=== PATIENT | female | born 1975 | race Caucasian/White ===

== ENCOUNTER → 2016-09-19 | Outpatient (CLI) | payer OTHER ==
[~2016-09-19] MED LIST: DEXT10TA23 PO; LEVO125T PO; LEVO125T5 PO; NITR50CA11 PO; OXYC1TAB7 PO; VALIUM10 MG PO
[2016-09-19 14:58] LABS: BASO % 0 % (0-3); EOS % 0 % (0-3); HEMATOCRIT 46.3 % (36.0-47.0); HEMOGLOBIN 15.3 g/dL (12.0-15.5); LYMPH # 1.4 x10^3/uL (1.0-4.8); LYMPH % 19 % (24-48); MEAN CORPUSCULAR HEMOGLOBIN 31 pg (25-35); MEAN CORPUSCULAR HGB CONC 33 g/dL (31-37); MEAN CORPUSCULAR VOLUME 95 fL (79-100); MONO % 4 % (0-9); NEUT % 76 % (31-73); PLATELET COUNT 352 x10^3/uL (140-400); RED CELL DISTRIBUTION WIDTH 13.2 % (11.5-14.5); WHITE BLOOD COUNT 7.3 x10^3/uL (4.0-11.0)
[2016-09-19 15:11] LABS: ALBUMIN/GLOBULIN RATIO 0.9 (1.0-1.7); CALCIUM 9.6 mg/dL (8.5-10.1); CREATININE 0.7 mg/dL (0.6-1.0); GFR 91.8; POTASSIUM 3.9 mmol/L (3.5-5.1); TOTAL BILIRUBIN 0.3 mg/dL (0.2-1.0); TOTAL PROTEIN 8.4 g/dL (6.4-8.2)
[2016-09-19 15:19] LABS: PROTHROMBIN TIME PATIENT 12.6 SEC (11.7-14.0)
--- NOTE | 2016-09-21 13:32 | PREOP HP ---
DATE OF SERVICE: 09/24/2016 PREOPERATIVE HISTORY AND PHYSICAL HISTORY OF PRESENT ILLNESS: The patient is a pleasant 40-year-old, who is having difficulty with back pain and pain which radiates into her right lower extremity. The majority of her pain radiates from her lower back on the right side into her right buttock and then down the right lateral thigh and lateral leg. Her problem started in 2003 when she fell on the stairs. She rates her pain currently as an 8/10. Standing and lifting, aggravate exacerbate her pain. Sleep did not help. She has had considerable amount conservative therapy including facet injections and epidural steroid injections as well as physical therapy. None of which have offered lasting relief. PAST MEDICAL HISTORY: Arthritis, cancer, psychiatric care and radiation. PAST SURGICAL HISTORY: Hysterectomy in 2012, thyroidectomy in 2014. FAMILY HISTORY: Cancer, hypertension. 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 . Exercises daily. Denies substance abuse. Denies tobacco use. ALLERGIES: TO SHELLFISH AND IV CONTRAST DYE. CURRENT MEDICATIONS: Meloxicam, Valium, Adderall, Synthroid and Macrobid. REVIEW OF SYSTEMS: A 12-point review of systems was obtained and is noncontributory except that mentioned above. PHYSICAL EXAMINATION: NEUROSURGERY EXAMINATION: GENERAL APPEARANCE: Alert, pleasant, no acute distress. HEAD: Normocephalic and atraumatic. SKIN: Warm and dry. MUSCULOSKELETAL: Lumbar paraspinal muscle bulk is normal, restricted range of motion of lumbar spine, moderate tenderness of lower lumbar spine with palpation, normal range of motion the lower extremities bilaterally. EXTREMITIES: No clubbing, cyanosis, or edema. NEUROLOGIC: Alert and oriented x 3, normal recent and remote memory, strength 5/5 in bilateral lower extremities, sensory was intact to light touch in the lower extremities bilaterally. Reflexes were trace and symmetric in bilateral lower extremities, positive straight leg raising on the right, negative straight leg raising on the left, normal gait. IMAGING: Reviewed. I reviewed a lumbar flexion and extension x-rays as well as lumbar MRI scan. On the flexion and extension films, there is a grade 1 anterolisthesis, which increases about 2 mm to full grade 1/small grade 2 with anterior angulation with flexion. On the MRI scan, the patient is supine, the spondylolisthesis is a smaller grade 1 at L4-L5, but is associated with____ canal, was severe lateral recess stenosis at this level. ASSESSMENT: 1. Spinal stenosis, lumbar region. 2. Spondylolisthesis, lumbar region. 3. Radiculopathy, lumbar region. PLAN: She has significant spondylolisthesis motion as well as lateral recess stenosis, which has moderately severe. Decompressing these regions will further destabilizer and expect to remove more than 50% of the facet bilaterally. She will require in addition to decompress an instrumented lumbar fusion with pedicle screws and posterolateral bone. I would also perform an anterior diskectomy and fusion at that level. I discussed with her ____ other the surgery in the emergency. I outlined the expected postoperative course. I spoke about the technique of the operation in detail. They both understand. They would like to go ahead. The patient would like to proceed. We will make the arrangements. LAYA LAMB MD DR: HAILEY/carolyn JOB#: [id number] / [id number]
== END | disposition home or self-care (01) ==
LOC: SURGPAT 13:10
PROVIDERS: ATTEND Neurological Surgery
DX: M48.06 Spinal stenosis, lumbar region (principal); M43.16 Spondylolisthesis, lumbar region; M54.16 Radiculopathy, lumbar region
CPT/HCPCS: 36415; 80053; 85027; 85610; 85730; 87641

== ENCOUNTER 2016-09-24 07:37 | Inpatient (IN) | payer OTHER ==
[2016-09-24] VITALS (9 sets, daily range): BP systolic 97–113; BP diastolic 62–75
[~2016-09-24] VITALS: Ht 165.1 cm; Wt 66.2 kg
--- NOTE | 2016-09-24 06:55 | PREOP HP ---
DATE OF SERVICE: 09/24/2016 PREOPERATIVE HISTORY AND PHYSICAL HISTORY OF PRESENT ILLNESS: The patient is a pleasant 40-year-old, who is having difficulty with back pain and pain which radiates into her right lower extremity. The majority of her pain radiates from her lower back on the right side into her right buttock and then down the right lateral thigh and lateral leg. Her problem started in 2003 when she fell on the stairs. She rates her pain currently as an 8/10. Standing and lifting, aggravate exacerbate her pain. Sleep did not help. She has had considerable amount conservative therapy including facet injections and epidural steroid injections as well as physical therapy. None of which have offered lasting relief. PAST MEDICAL HISTORY: Arthritis, cancer, psychiatric care and radiation. PAST SURGICAL HISTORY: Hysterectomy in 2012, thyroidectomy in 2014. FAMILY HISTORY: Cancer, hypertension. SOCIAL HISTORY: Employed as a [employer]. . Exercises daily. Denies substance abuse. Denies tobacco use. ALLERGIES: TO SHELLFISH AND IV CONTRAST DYE. CURRENT MEDICATIONS: Meloxicam, Valium, Adderall, Synthroid and Macrobid. REVIEW OF SYSTEMS: A 12-point review of systems was obtained and is noncontributory except that mentioned above. PHYSICAL EXAMINATION: NEUROSURGERY EXAMINATION: GENERAL APPEARANCE: Alert, pleasant, no acute distress. HEAD: Normocephalic and atraumatic. SKIN: Warm and dry. MUSCULOSKELETAL: Lumbar paraspinal muscle bulk is normal, restricted range of motion of lumbar spine, moderate tenderness of lower lumbar spine with palpation, normal range of motion the lower extremities bilaterally. EXTREMITIES: No clubbing, cyanosis, or edema. NEUROLOGIC: Alert and oriented x 3, normal recent and remote memory, strength 5/5 in bilateral lower extremities, sensory was intact to light touch in the lower extremities bilaterally. Reflexes were trace and symmetric in bilateral lower extremities, positive straight leg raising on the right, negative straight leg raising on the left, normal gait. IMAGING: Reviewed. I reviewed a lumbar flexion and extension x-rays as well as lumbar MRI scan. On the flexion and extension films, there is a grade 1 anterolisthesis, which increases about 2 mm to full grade 1/small grade 2 with anterior angulation with flexion. On the MRI scan, the patient is supine, the spondylolisthesis is a smaller grade 1 at L4-L5, but is associated with____ canal, was severe lateral recess stenosis at this level. ASSESSMENT: 1. Spinal stenosis, lumbar region. 2. Spondylolisthesis, lumbar region. 3. Radiculopathy, lumbar region. PLAN: She has significant spondylolisthesis motion as well as lateral recess stenosis, which has moderately severe. Decompressing these regions will further destabilizer and expect to remove more than 50% of the facet bilaterally. She will require in addition to decompress an instrumented lumbar fusion with pedicle screws and posterolateral bone. I would also perform an anterior diskectomy and fusion at that level. I discussed with her ____ other the surgery in the emergency. I outlined the expected postoperative course. I spoke about the technique of the operation in detail. They both understand. They would like to go ahead. The patient would like to proceed. We will make the arrangements. LAYA LAMB MD DR: HAILEY/carolyn JOB#: [id number] / [id number]
[~2016-09-24 07:37] MED LIST changes: +BACITRACIN 50,000 UNIT in IV NORMAL SALINE 1000ML BAG 1,000 ML IRR ONE; +FENTANYL PF 100 MCG/2 ML VIAL. IV PRN; +HYDROMORPHONE 2 MG/ML VIAL. IV PRN; +IV RINGERS,LACTATED 1000ML 1,000 ML IV SCH; -LEVO125T5 PO; +LIDOCAINE 1% 1 ML SYRINGE. ID PRN; +MORPHINE SULFATE 2 MG/ML DISP.SYRIN. IV PRN; +ONDANSETRON PF 4 MG/2 ML VIAL. IV PRN; -OXYC1TAB7 PO; +PROCHLORPERAZINE 10 MG/2 ML VIAL. IV PRN; +VANCOMYCIN 1GM IVPB FOR OMNI 250 ML IV PRN
[2016-09-24 08:22] LABS: NEG OBC UR NEG; POS OBC UR POS
[2016-09-24] MEDS ORDERED: BUPIVAC MPF-EPI 0.5%-1:200000 30 ML VIAL. ONE (08:31)
[2016-09-24] MEDS ORDERED: THROMBIN 20,000 UNIT SPRAY.SYRN KIT TP ONE (08:31)
[2016-09-24] MEDS ORDERED: GELATIN SPONGE SIZE 100. ONE (08:31)
[2016-09-24] MEDS ORDERED: KETOROLAC 60 MG/2 ML SYRINGE FOR OR. ONE (08:31)
[2016-09-24] MEDS ORDERED: 0.9 % SODIUM CHLORIDE 50 ML VIAL. IJ ONE (08:50)
[2016-09-24] MEDS ORDERED: MIDAZOLAM HCL 2 MG/2 ML VIAL. ONE (08:50)
[2016-09-24] MEDS ORDERED: PROPOFOL 50 ML IV ONE ×2 (08:50→14:44)
[2016-09-24] MEDS ORDERED: PROPOFOL 20 ML IV ONE (08:50)
[2016-09-24] MEDS ORDERED: LIDOCAINE 2% 100 MG/5 ML DISP.SYRIN. ONE (08:50)
[2016-09-24] MEDS ORDERED: FENTANYL PF 250 MCG/5 ML VIAL. ONE (08:51)
[2016-09-24] MEDS ORDERED: REMIFENTANIL 1 MG VIAL. IV ONE (08:51)
[2016-09-24] MEDS ORDERED: ROCURONIUM 50 MG/5 ML VIAL. ONE (08:53)
[2016-09-24] MEDS ORDERED: SCOPOLAMINE 1.5MG PATCH. TD ONE ×2 (09:44→10:00)
[2016-09-24] MEDS ORDERED: ISOFLURANE > 120 MINUTES. IH ONE (11:36)
[2016-09-24] MEDS ORDERED: DESFLURANE > 120 MINUTES IH ONE (11:37)
[2016-09-24] MEDS ORDERED: PHENYLEPHRINE 10 MG/ML VIAL. ONE ×2 (12:21)
[2016-09-24] MEDS ORDERED: ONDANSETRON PF 4 MG/2 ML VIAL. ONE (12:31)
[2016-09-24] MEDS ORDERED: DEXAMETHASONE SOD PHOS 20 MG/5 ML VIAL. ONE (12:31)
[2016-09-24] MEDS ORDERED: MINERAL OIL/PETROLATUM,WHITE OPHTH OINT 3.5GM TUBE. ONE (12:31)
--- NOTE | 2016-09-24 12:38 | RAD ---
CT of the lumbar spine without contrast, 09/24/2016: History: Lumbar radiculopathy, spondylolisthesis, brain lab study Noncontrast scans were obtained with multiplanar reconstructions produced. The data was transferred to the operating room to aid in the patient's stereotactically guided surgery. The following findings are delineated: 1. No significant posterior disc bulge or protrusion is seen at L1-2 and L2-3. The central spinal canal and neural foramina are well maintained. 2. At L3-4 there is mild posterior annular bulging, more so on the left. There are mild degenerative changes involving the facet joints. The central spinal canal is well-preserved. There is only mild inferior foraminal narrowing on the left. 3. At L4-5 there are severe degenerative changes involving the facet joints with posterior ligamentous thickening. There is a mild associated spondylolisthesis. There is moderate broad-based posterior disc bulging. The combination of findings is causing moderate narrowing of the central spinal canal in a triangular configuration, as well as moderate foraminal encroachment bilaterally. 4. There is a small calcification in the right lateral recess at the upper L5 level compatible with a prominent spur versus a calcified disc fragment. 5. At L5-S1 there are moderate degenerative changes involving the facet joints. There is moderate posterior disc bulging which is most prominent on the right. The central spinal canal is fairly well preserved. There is mild bilateral foraminal narrowing, more so on the right. PQRS Compliance Statement: One or more of the following individualized dose reduction techniques were utilized for this examination: 1. Automated exposure control 2. Adjustment of the mA and/or kV according to patient size 3. Use of iterative reconstruction technique
[2016-09-24] MEDS ORDERED: REMIFENTANIL 2 MG VIAL. IV ONE (13:27)
[2016-09-24] MEDS ORDERED: MAG HYDROX/ALUMINUM HYDROX/SMC 30 ML ORAL.SUSP PO PRN (14:00)
[2016-09-24] MEDS ORDERED: DIPHENHYDRAMINE HCL 25 MG CAPSULE PO PRN (14:00)
[2016-09-24] MEDS ORDERED: POTASSIUM CL 20MEQ D5-0.45NACL 1,000 ML IV SCH (14:00)
[2016-09-24] MEDS ORDERED: ONDANSETRON PF 4 MG/2 ML VIAL. IV PRN (14:00)
[2016-09-24] MEDS ORDERED: MAGNESIUM HYDROXIDE 2,400 MG/30 ML ORAL.SUSP. PO PRN (14:00)
[2016-09-24] MEDS ORDERED: FENTANYL PF 100 MCG/2 ML VIAL. IV PRN (14:00)
[2016-09-24] MEDS ORDERED: ACETAMINOPHEN 325 MG TABLET. PO PRN (14:00)
[2016-09-24] MEDS ORDERED: ZOLPIDEM 5 MG TABLET. PO PRN (14:00)
[2016-09-24] MEDS ORDERED: CALCIUM CARBONATE 500 MG TAB.CHEW PO PRN (14:00)
[2016-09-24] MEDS ORDERED: OXYCODONE/APAP 5/325 TABLET. PO PRN (14:00)
[2016-09-24] MEDS ORDERED: 0.9 % SODIUM CHLORIDE 10 ML DISP.SYRIN. IV PRN (14:00)
[2016-09-24] MEDS ORDERED: DIPHENHYDRAMINE 50 MG/ML VIAL IV PRN (14:00)
[2016-09-24] MEDS ORDERED: NEOSTIGMINE METHYLSULFATE 5 MG/5 ML SYRINGE. ONE (15:15)
[2016-09-24] MEDS ORDERED: GLYCOPYRROLATE 1 MG/5 ML VIAL. ONE (15:15)
[2016-09-24] MEDS ORDERED: PHENYLEPHRINE in 0.9% NACL PF 1 MG/10 ML DISP.SYRIN. IV ONE (15:16)
[2016-09-24] MEDS: DIAZEPAM 5 MG TABLET PO SCH ×2 (15:45→20:34)
[2016-09-24] MEDS: FENTANYL PF 100 MCG/2 ML VIAL. IV PRN ×8 (16:02→23:47)
[2016-09-24] MEDS ORDERED: LEVO125T5 PO (17:41)
[2016-09-24] MEDS: METHOCARBAMOL 750 MG TABLET PO SCH ×2 (18:24→20:34)
[2016-09-24] MEDS: NITROFURANTOIN MONOHYD/M-CRYST 100 MG CAPSULE. PO SCH (18:24)
[2016-09-24] MEDS: OXYCODONE/APAP 5/325 TABLET. PO PRN ×2 (18:25→22:37)
[2016-09-24] MEDS: DOCUSATE SODIUM 100 MG CAPSULE PO SCH (20:34)
[2016-09-24] MEDS ORDERED: AMPHETAMINE PO SCH (21:00)
[2016-09-24] MEDS ORDERED: DEXTROAMPHETAMINE PO SCH (21:00)
[2016-09-24] MEDS ORDERED: VANCOMYCIN 1 GM in IV NORMAL SALINE 250ML 250 ML IV ONE (23:00)
[2016-09-25] MEDS: FENTANYL PF 100 MCG/2 ML VIAL. IV PRN ×5 (01:13→09:43)
[2016-09-25 03:28] VITALS: BP 94/55
[2016-09-25] MEDS: OXYCODONE/APAP 5/325 TABLET. PO PRN ×3 (04:53→15:47)
[2016-09-25 07:00] VITALS: BP 105/62
[2016-09-25] MEDS ORDERED: LEVOTHYROXINE 125 MCG TABLET PO SCH (07:30)
[2016-09-25] MEDS: DOCUSATE SODIUM 100 MG CAPSULE PO SCH (08:16)
[2016-09-25] MEDS: METHOCARBAMOL 750 MG TABLET PO SCH ×2 (08:16→15:37)
[2016-09-25] MEDS: DIAZEPAM 5 MG TABLET PO SCH ×2 (08:16→15:37)
[2016-09-25] MEDS: NITROFURANTOIN MONOHYD/M-CRYST 100 MG CAPSULE. PO SCH (08:16)
[2016-09-25 08:28] VITALS: BP 105/62
--- NOTE | 2016-09-25 09:36 | DISCH ---
DISCHARGE INSTRUCTIONS Condition on Discharge Condition on Discharge: Stable Activity After Discharge Activity Instructions for Disc: Activity as tolerated, Avoid exertion Bathing Instructions: Shower-keep dressing dry Lifting Instructions after Dis: No heavy lifting, No pulling or pushing, Do not lift >10 pounds Driving Instructions after Dis: No driving for 2 weeks Diet after Discharge Additional Diet Restrictions: resume home diet Wound Incision Care Wound/Incision Care: Ice to area for comfort Other wound/incision instructi: may remove dressing in 48 hrs if dry then may shower- no soaking Contacting the after DC Call your doctor for: Concerns you may have Follow-Up Follow up with: Dr. Trammell in 2 weeks [phone] BRITT ESTRADA APRN Sep 25, 2016 09:36
[2016-09-25] MEDS ORDERED: OXYC1TAB7 PO (09:39)
[2016-09-25 11:00] VITALS: BP 105/62
[2016-09-25 15:00] VITALS: BP 98/61
--- NOTE | 2016-09-26 15:24 | PATHOLOGY ---
PATHOLOGY REPORT * * * * * * * * FINAL DIAGNOSIS: Segments of fibrocartilaginous tissue and bone, lumbar decompression: - Degenerative changes of fibrocartilaginous tissue showing focal fibrosis, remote hemorrhage, and foreign body giant cell reaction. COMMENT: There is no evidence of an acute inflammatory process or malignancy. (CRISTINM:; d/t: 09/26/16) REPORT ELECTRONICALLY SIGNED BY: Ulysses Nelson M.D. DATE/TIME: 09/26/2016 15:23 * * * * * * * * GROSS PATHOLOGY: Received in formalin labeled "Simi Gallo and lumbar decompression," are multiple segments of white-cochran to yellow-cochran, rubbery, gritty tissue, admixed with possible bone, measuring 6.3 x 4.8 x 0.9 cm in aggregate dimensions. The tissue is submitted representatively in cassette A1, following decalcification. (TTL; 09/25/2016) INITIAL CPT CODE(S): A; 92825, 02127 Professional services [place] [address] Technical services performed by [facility] at [address] [place] [address]. SPECIMEN(S) RECEIVED: A.Lumbar decompression CLINICAL HISTORY: Lumbar stenosis, spondylolisthesis, lumbar radiculopathy PATIENT: SIMI GALLO /AGE: 310/30/1975 (Age: 40) PATIENT #: [id number] ALT CASE #: SPECIMEN COLLECTION DATE: 09/24/2016 SPECIMEN RECEIVED DATE: 09/25/2016 [facility] - [address] [place] [address] - PHONE: [phone] * * * END OF REPORT * * *
--- NOTE | 2016-09-27 01:47 | OP ---
DATE OF SURGERY: 09/24/2016 PREOPERATIVE DIAGNOSIS: Spondylolisthesis L4-L5 with severe lumbar spinal stenosis and right lumbar radiculopathy. POSTOPERATIVE DIAGNOSIS: Spondylolisthesis L4-L5 with severe lumbar spinal stenosis and right lumbar radiculopathy. OPERATION PERFORMED: 1. Lumbar laminectomy, L4-L5 with facetectomy and foraminotomy L4-L5, right. 2. Posterior instrumentation L4-L5 with reduction of spondylolisthesis and realignment of spine. 3. Posterolateral fusion L4-L5 using allograft and autograft bone. The operation was done with stimulated EMG monitoring, fluoroscopy, microscopic dissection, BrainLAB guidance. Vancomycin 1 gram was given as a preoperative antibiotic. PHOTOGRAPH DEVELOPER: Pavan Calvin M.D., assisted with the exposure, the decompression, instrumentation, and fusion as closure. OPERATIVE INDICATIONS: The patient is a very pleasant 40-year-old woman who developed intractable back and right leg pain which was severe and interfered with all of her activities. On imaging studies, she had a grade 1/2 spondylolisthesis with motion on flexion and extension films along with severe lumbar spinal stenosis, prominently on the right side and I recommended microdecompressive surgery combined with posterior instrumentation and fusion. I discussed with her the possibility of an anterior diskectomy and fusion should that be deemed advisable, and she understood the surgery, the risks, technique and the expected postoperative course and wished to go ahead. DESCRIPTION OF PROCEDURE: Following general endotracheal anesthesia, the patient was positioned prone on the Julián table. Her lumbar region was prepped and draped in standard fashion. ARIADNA hose and AV impulse boots were applied for DVT prophylaxis. The microscope was draped, fluoroscopy was draped and brought into field. Monitoring was established. Vancomycin 1 gram was given. The BrainLAB system was initialized after pins were placed into the left iliac crest and then an incision was made in the midline extending from superior L4 to inferior L5 and the paraspinal muscles were reflected. Beginning in the left side, I exposed the facet and the transverse processes which were excoriated. I did aspirate 20 mL of bone marrow from the left iliac crest and used this with allograft bone to prepare a fusion bone. I then brought in the high speed air drill and burred down a very generous hemilaminotomy on the right side and continued this to superiorly, inferiorly, medially and laterally to achieve a laminectomy and then worked and performed a facetectomy and foraminotomy on the right. There was a significant spondylolisthesis. The exiting root in the foramen had a late take off and passed circumferentially around the disk space prior to moving lateral and this prevented safely a lateral oblique approach to perform the anterior portion of the operation. Pedicle screws were placed into L4 and L5 by drilling into the posterior aspect of the pedicle with a high speed drill followed by the black ball, followed by the ball tip probe, followed by tap, followed by screw placement. NuVasive system was used, 6.5 screws were placed and the rods were placed. I then worked and helped to reduce the spondylolisthesis using the screw and lawson construct and during this time, there was a very slight distraction as well as sequential tightening and torquing of the construct. Allograft bone mixed with autograft bone from the laminectomy was then packed into each lateral gutter after I excoriated and this was done during the placement of the pedicle screws on both left and right sides. And so, at this point, the stenosis was well decompressed with the nerve roots on the right visualized. The pedicle screws were placed. Spondylolisthesis was improved, visualized on fluoroscopic images. There was posterolateral allograft and autograft bone in each lateral gutter at L4-L5. I irrigated copiously. The wound was then closed with absorbable suture after perfect hemostasis had been obtained. The patient was taken to the recovery room and awakened uneventfully with normal strength in her lower extremities. I was quite pleased with the surgery. LAYA LAMB MD DR: HAILEY/carolyn JOB#: [id number] / [id number]
== END 2016-09-25 17:04 | disposition home or self-care (01) | DRG 460 ==
LOC: OPSVCIP 07:37 → 4 NORTH 17:30
PROVIDERS: ADMIT Neurological Surgery; ATTEND Neurological Surgery
PROC: 01NB0ZZ Release Lumbar Nerve, Open Approach (ICD-10-PCS; 2016-09-24)
PROC: 07DR3ZZ Extraction of Iliac Bone Marrow, Percutaneous Approach (ICD-10-PCS; 2016-09-24)
PROC: 4A11X4G Monitoring of Peripheral Nervous Electrical Activity, Intraoperative, External Approach (ICD-10-PCS; 2016-09-24)
PROC: 0SG0071 Fusion of Lumbar Vertebral Joint with Autologous Tissue Substitute, Posterior Approach, Posterior Column, Open Approach (ICD-10-PCS; principal; 2016-09-24 12:00)
DX: M48.06 Spinal stenosis, lumbar region (principal); M43.16 Spondylolisthesis, lumbar region; M54.16 Radiculopathy, lumbar region; Z82.49 Family history of ischemic heart disease and other diseases of the circulatory system; Z90.710 Acquired absence of both cervix and uterus; Z91.041 Radiographic dye allergy status; Z91.013 Allergy to seafood
CPT/HCPCS: 36415; 72131; 76000; 81025; 86850; 86900; 86901; 88304; 88311; C1713; J0780; J1100; J1885; J2250; J2370; J2405; J2704; J2710; J3010; J3370; J3490; J7030; J7050; J7120; 97116; 97530

== ENCOUNTER → 2016-12-17 | Outpatient (CLI) | payer OTHER ==
[~2016-12-17] MED LIST changes: -BACITRACIN 50,000 UNIT in IV NORMAL SALINE 1000ML BAG 1,000 ML IRR ONE; -FENTANYL PF 100 MCG/2 ML VIAL. IV PRN; -HYDROMORPHONE 2 MG/ML VIAL. IV PRN; -IV RINGERS,LACTATED 1000ML 1,000 ML IV SCH; +LEVO125T5 PO; -LIDOCAINE 1% 1 ML SYRINGE. ID PRN; -MORPHINE SULFATE 2 MG/ML DISP.SYRIN. IV PRN; -ONDANSETRON PF 4 MG/2 ML VIAL. IV PRN; +OXYC1TAB7 PO; -PROCHLORPERAZINE 10 MG/2 ML VIAL. IV PRN; -VANCOMYCIN 1GM IVPB FOR OMNI 250 ML IV PRN
--- NOTE | 2016-12-18 14:03 | KCIC ---
AP and lateral lumbar spine Indication: Reason For Study Reason: FOLLOW UP POST OP FUSION / Spl. Instructions: / History: Comparison: Lumbar spine from 07/24/2016 Findings: There has been performance of posterior spinal fusion L4-L5. Grade 1 anterolisthesis is noted at this level. There is no compression fracture. No evidence for hardware loosening or fracture. Impression: - Posterior spinal fusion L4-L5 with grade 1 anterolisthesis at this level. Electronically signed by: Jimi Proctor (December 18, 2016 14:02:02)
== END | disposition home or self-care (01) ==
LOC: KCIC 13:17
PROVIDERS: ATTEND Neurological Surgery
DX: M43.26 Fusion of spine, lumbar region (principal)
CPT/HCPCS: 72100

== ENCOUNTER 2018-12-11 08:41 | Emergency (ER) | payer OTHER, SELFPAY ==
[~2018-12-11] VITALS: Ht 165.1 cm; Wt 81.6 kg
[2018-12-11 09:14] LABS: CALCIUM 9.2 mg/dL (8.5-10.1); CREATININE 0.8 mg/dL (0.6-1.0); GFR 77.6; POTASSIUM 3.3 mmol/L (3.5-5.1)
[2018-12-11 09:19] LABS: ACETAMIN 4.2 mcg/ml (10-30); BASO % 0 % (0-3); EOS # 0.1 x10^3/uL (0.0-0.7); EOS % 1 % (0-3); ETHANOL < 10 mg/dL (0-10); HEMOGLOBIN 13.4 g/dL (12.0-15.5); LYMPH # 2.2 x10^3/uL (1.0-4.8); LYMPH % 33 % (24-48); MEAN CORPUSCULAR HEMOGLOBIN 32 pg (25-35); MEAN CORPUSCULAR HGB CONC 34 g/dL (31-37); MEAN CORPUSCULAR VOLUME 95 fL (79-100); MONO # 0.6 x10^3/uL (0.0-1.1); MONO % 9 % (0-9); NEUT # 3.8 x10^3uL (1.8-7.7); NEUT % 57 % (31-73); PLATELET COUNT 371 x10^3/uL (140-400); RED BLOOD COUNT 4.22 x10^6/uL (3.50-5.40); RED CELL DISTRIBUTION WIDTH 13.3 % (11.5-14.5); SALIC < 2.8 mg/dL (2.8-20.0); WHITE BLOOD COUNT 6.7 x10^3/uL (4.0-11.0)
[2018-12-11 09:22] LABS: ALBUMIN 3.9 g/dL (3.4-5.0); DIRECT BILIRUBIN 0.1 mg/dL (0.0-0.2); TOTAL BILIRUBIN 0.1 mg/dL (0.2-1.0)
[2018-12-11 09:23] LABS: BILIRUBIN,URINE NEGATIVE (NEG); CLARITY,URINE CLEAR; COLOR,URINE YELLOW; NITRITE,URINE NEGATIVE (NEG); PROTEIN,URINE NEGATIVE (NEG-TRACE); UROBILINOGEN,URINE 0.2 mg/dL (0.2 mg/dL)
[2018-12-11 09:27] LABS: BARBITURATES NEG (NEG); BENZODIAZEPINES NEG (NEG); CANNABINOIDS NEG (NEG); COCAINE NEG (NEG); METHADONE NEG (NEG); OPIATES POS (NEG); PHENCYCLIDINE NEG (NEG)
[2018-12-11 09:28] LABS: AMPHETAMINE/METHAMPHETAMINE POS (NEG)
[2018-12-11 09:58] LABS: SQUAMOUS EPITHELIAL CELL,UR MOD /LPF
[2018-12-11 09:59] LABS: BACTERIA,URINE FEW /HPF (0-FEW); RBC,URINE 0 /HPF (0-2); WBC,URINE OCC /HPF (0-4)
--- NOTE | 2018-12-11 10:08 | PHYS DOC ---
Past Medical History Past Medical History: Depression, Hypothyroid Additional Past Medical Histor: ADHD, "ALLERGIES" Past Surgical History: Hysterectomy Alcohol Use: Occasionally Drug Use: None Adult General Chief Complaint Chief Complaint: DRUG ABUSE HPI HPI Patient is a 43 year old female was brought here by EMS from her workplace because she was acting very sleepy. There was report multiple missing doses of narcotics at her workplace. 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 She denies suicidal ideation, denies homicidal ideation. Patient denied taking any narcotic. She denies any headache, no abdominal pain, nausea vomiting. Review of Systems Review of Systems Constitutional: Denies fever or chills [] Eyes: Denies change in visual acuity, redness, or eye pain [] HENT: Denies nasal congestion or sore throat [] Respiratory: Denies cough or shortness of breath [] Cardiovascular: No additional information not addressed in HPI [] GI: Denies abdominal pain, nausea, vomiting, bloody stools or diarrhea [] : Denies dysuria or hematuria [] Musculoskeletal: Denies back pain or joint pain [] Integument: Denies rash or skin lesions [] Neurologic: Denies headache, focal weakness or sensory changes [] Endocrine: Denies polyuria or polydipsia Psych: Patient denied suicidal ideation or homicidal ideation. All other systems were reviewed and found to be within normal limits, except as documented in this note. Allergies Allergies Allergies Coded Allergies Type Severity Reaction Last Updated Verified Iodinated Contrast- Oral and IV Dye Allergy Intermediate Hives 09/24/16 Yes shellfish derived Allergy Intermediate Hives 09/24/16 Yes I S O L A T I O N *CONTACT* Allergy Unknown 09/24/16 Yes Physical Exam Physical Exam Constitutional: Well developed, well nourished, no acute distress, non-toxic appearance. Patient appeared very somnolent HENT: Normocephalic, atraumatic, bilateral external ears normal, oropharynx moist, no oral exudates, nose normal. [] Eyes: PERRLA, EOMI, conjunctiva normal, no discharge. [] Neck: Normal range of motion, no tenderness, supple, no stridor. [] Cardiovascular:Heart rate regular rhythm, no murmur [] Lungs & Thorax: Bilateral breath sounds clear to auscultation [] Abdomen: Bowel sounds normal, soft, no tenderness, no masses, no pulsatile masses. [] Skin: Warm, dry, no erythema, no rash. [] Back: No tenderness, no CVA tenderness. [] Extremities: No tenderness, no cyanosis, no clubbing, ROM intact, no edema. [] Neurologic: Alert and oriented X 3, normal motor function, normal sensory function, no focal deficits noted. [] Psychologic: Affect normal, judgement normal, mood normal. Patient denies suicidal ideation denies homicidal ideation. Current Patient Data Vital Signs Vital Signs Date Time Temp Pulse Resp B/P (MAP) Pulse Ox O2 Delivery O2 Flow Rate FiO2 12/11/18 13:00 64 12 97/68 (78) 94 Room Air 12/11/18 08:50 97.3 97.3 Lab Values Laboratory Tests Test 12/11/18 08:50 White Blood Count 6.7 x10^3/uL (4.0-11.0) Red Blood Count 4.22 x10^6/uL (3.50-5.40) Hemoglobin 13.4 g/dL (12.0-15.5) Hematocrit 40.0 % (36.0-47.0) Mean Corpuscular Volume 95 fL (79-100) Mean Corpuscular Hemoglobin 32 pg (25-35) Mean Corpuscular Hemoglobin Concent 34 g/dL (31-37) Red Cell Distribution Width 13.3 % (11.5-14.5) Platelet Count 371 x10^3/uL (140-400) Neutrophils (%) (Auto) 57 % (31-73) Lymphocytes (%) (Auto) 33 % (24-48) Monocytes (%) (Auto) 9 % (0-9) Eosinophils (%) (Auto) 1 % (0-3) Basophils (%) (Auto) 0 % (0-3) Neutrophils # (Auto) 3.8 x10^3uL (1.8-7.7) Lymphocytes # (Auto) 2.2 x10^3/uL (1.0-4.8) Monocytes # (Auto) 0.6 x10^3/uL (0.0-1.1) Eosinophils # (Auto) 0.1 x10^3/uL (0.0-0.7) Basophils # (Auto) 0.0 x10^3/uL (0.0-0.2) Urine Collection Type Unknown Urine Color Yellow Urine Clarity Clear Urine pH 6.0 Urine Specific [place] 1.015 Urine Protein Negative mg/dL (NEG-TRACE) Urine Glucose (UA) Negative mg/dL (NEG) Urine Ketones (Stick) Negative mg/dL (NEG) Urine Blood Negative (NEG) Urine Nitrite Negative (NEG) Urine Bilirubin Negative (NEG) Urine Urobilinogen Dipstick 0.2 mg/dL (0.2 mg/dL) Urine Leukocyte Esterase Negative (NEG) Urine RBC 0 /HPF (0-2) Urine WBC Occ /HPF (0-4) Urine Squamous Epithelial Cells Mod /LPF Urine Bacteria Few /HPF (0-FEW) Urine Mucus Mod /LPF Sodium Level 139 mmol/L (136-145) Potassium Level 3.3 mmol/L (3.5-5.1) L Chloride Level 101 mmol/L (98-107) Carbon Dioxide Level 30 mmol/L (21-32) Anion Gap 8 (6-14) Blood Urea Nitrogen 14 mg/dL (7-20) Creatinine 0.8 mg/dL (0.6-1.0) Estimated GFR (Cockcroft-Gault) 77.6 Glucose Level 107 mg/dL (70-99) H Calcium Level 9.2 mg/dL (8.5-10.1) Total Bilirubin 0.1 mg/dL (0.2-1.0) L Direct Bilirubin 0.1 mg/dL (0.0-0.2) Aspartate Amino Transferase (AST) 27 U/L (15-37) Alanine Aminotransferase (ALT) 37 U/L (14-59) Alkaline Phosphatase 72 U/L (46-116) Total Protein 8.0 g/dL (6.4-8.2) Albumin 3.9 g/dL (3.4-5.0) Salicylates Level < 2.8 mg/dL (2.8-20.0) L Salicylate Last Dose Date Unknown Salicylate Last Dose Time Unknown Urine Opiates Screen Pos (NEG) Urine Methadone Screen Neg (NEG) Acetaminophen Level 4.2 mcg/ml (10-30) L Acetaminophen Last Dose Date Unknown Acetaminophen Last Dose Time Unknown Urine Barbiturates Neg (NEG) Urine Phencyclidine Screen Neg (NEG) Urine Amphetamine/Methamphetamine Pos (NEG) Urine Benzodiazepines Screen Neg (NEG) Urine Cocaine Screen Neg (NEG) Urine Cannabinoids Screen Neg (NEG) Ethyl Alcohol Level < 10 mg/dL (0-10) Urine Ethyl Alcohol Neg (NEG) Laboratory Tests 12/11/18 08:50 Laboratory Tests 12/11/18 08:50 EKG EKG [] Radiology/Procedures Radiology/Procedures [] Course & Med Decision Making Course & Med Decision Making Pertinent Labs and Imaging studies reviewed. (See chart for details) She was tested positive for narcotic she again denied taking any narcotic medication she denies suicidal ideation. Patient was observed here for 4 hours. Patient was discharged home. Dragon Disclaimer Dragon Disclaimer This electronic medical record was generated, in whole or in part, using a voice recognition dictation system. Departure Departure Impression: Primary Impression: Accidental drug overdose Additional Impression: Substance abuse Disposition: 01 HOME, SELF-CARE Condition: STABLE Referrals: NO PCP (PCP) FOLLOW UP WITH YOUR DOCTOR NEEDED ON SATURDAY Problem Qualifiers BERT STEWART DO December 11, 2018 10:08
[2018-12-11 13:00] VITALS: BP 97/68
== END 2018-12-11 13:22 | disposition home or self-care (01) ==
LOC: EEVIPCON 08:41 → ER 08:41
DX: T65.891A Toxic effect of other specified substances, accidental (unintentional), initial encounter (principal); F32.9 Major depressive disorder, single episode, unspecified; E03.9 Hypothyroidism, unspecified; Z90.710 Acquired absence of both cervix and uterus; Z91.041 Radiographic dye allergy status; Z91.013 Allergy to seafood; Y92.89 Other specified places as the place of occurrence of the external cause
CPT/HCPCS: 36415; 80048; 80076; 80307; 80329; 81001; 85025; 99284; G0480

== ENCOUNTER 2020-02-29 11:39 | Emergency (ER) | payer OTHER ==
[~2020-02-29] VITALS: Ht 165.1 cm; Wt 75.0 kg
[2020-02-29 11:50] VITALS: BP 167/93
[2020-02-29] MEDS ORDERED: HYDROcodone/APAP 5/325MG 1 TAB TABLET PO ONE (12:45)
--- NOTE | 2020-02-29 13:24 | RAD ---
CT LUMBAR SPINE WO CONTRAST History:Reason: FALL, PAIN AT SURGERY SITE / Spl. Instructions: / History: Technique: Noncontrast CT was performed of the lumbar spine. Multiplanar reconstructions were performed. Exposure: One or more of the following individualized dose reduction techniques were utilized for this examination: 1. Automated exposure control 2. Adjustment of the mA and/or kV according to patient size 3. Use of iterative reconstruction technique. Comparison: September 24, 2016 Findings: Punctate nonobstructing bilateral renal calculi. No hydronephrosis. Posterior stabilization L4-L5. Grade 1 anterolisthesis L4 on L5, unchanged. Acute T12 superior endplate compression fracture with mild height loss approximately 25 percent. Minimal retropulsion. No significant canal narrowing. No additional fracture. T12-L1: Minimal disc bulge. No canal or neuroforaminal narrowing. L1-L2: Minimal disc bulge. No canal or neuroforaminal narrowing. L2-L3: Small disc bulge. Mild facet arthropathy. No canal narrowing. No neuroforaminal narrowing. L3-L4: Broad-based disc bulge eccentric to the left. Moderate facet arthropathy. Mild left subarticular recess narrowing. No canal narrowing. Minimal left neuroforaminal narrowing. No right neuroforaminal narrowing. L4-L5: Anterolisthesis. Disc uncovering. Disc bulge. Prior right hemilaminectomy. No canal narrowing. No neuroforaminal narrowing. L5-S1: Broad-based disc bulge eccentric to the right. Bilateral subarticular recess narrowing, right greater than left. Abutment of the bilateral descending S1 nerve roots, right greater than left. No canal narrowing. Moderate to advanced facet arthropathy. Mild right neuroforaminal narrowing. No left neuroforaminal narrowing. Impression: 1. Acute T12 mild compression fracture. 2. Grade 1 anterolisthesis L4 on L5 with posterior stabilization. 3. Multilevel lumbar spondylosis most prominent L3-L4 and L5-S1. 4. L5-S1 subarticular recess narrowing with abutment of the descending S1 nerve roots, right greater than left. Correlate for radiculopathy. 5. Nonobstructing bilateral renal calculi. Electronically signed by: Tavon Rocha DO (02/29/2020 1:22 PM) [facility]
[2020-02-29 13:40] LABS: BILIRUBIN,URINE NEGATIVE (NEG); CLARITY,URINE CLEAR; COLOR,URINE YELLOW; NITRITE,URINE NEGATIVE (NEG); PROTEIN,URINE NEGATIVE (NEG-TRACE); UROBILINOGEN,URINE 0.2 mg/dL (0.2 mg/dL)
[2020-02-29 13:52] LABS: BACTERIA,URINE MODERATE /HPF (0-FEW); RBC,URINE OCC /HPF (0-2); SQUAMOUS EPITHELIAL CELL,UR MOD /LPF
[2020-02-29] MEDS ORDERED: OXYC1TAB15 PO (13:57)
[2020-02-29] MEDS ORDERED: IBUP-1007 PO (13:57)
--- NOTE | 2020-02-29 13:58 | PHYS DOC ---
Past Medical History Past Medical History: Depression, Hypothyroid Additional Past Medical Histor: ADHD, "ALLERGIES" Past Surgical History: Hysterectomy Smoking Status: Never Smoker Alcohol Use: Occasionally Drug Use: None General Adult EDM: Chief Complaint: MECHANICAL FALL HPI: HPI: Patient is a 44 year old complains of low back pain after a slip and fall striking her back against a bottom step, patient states she did not fall down the steps but she fell when she was at the bottom of the steps backwards hit her back at approximately 1030 today. Patient denies loss of consciousness, patient denies any other complaints of pain or discomfort on her body except for her low back area. Patient denies any cough or shortness of breath, or chest pain, abdominal pain, nausea, vomiting, diarrhea. She denies any problems urinating, patient denies any incontinence of bowel or bladder. Patient denies any headaches, focal weaknesses, or sensory changes. Patient denies any recent life changes, depressions, anxieties, homicidal or suicidal ideations. Denies being exposed to the COVID virus, denies COVID virus concerns. Review of Systems: Review of Systems: Constitutional: Denies fever or chills. Eyes: Denies change in visual acuity. HENT: Denies nasal congestion or sore throat. Respiratory: Denies cough or shortness of breath. Cardiovascular: Denies chest pain or edema. GI: Denies abdominal pain, nausea, vomiting, denies loss of bowel. : Denies dysuria. Denies loss of bladder. Musculoskeletal: Denies back pain or joint pain. Integument: Denies rash. Neurologic: Denies headache, focal weakness or sensory changes. Psychiatric: Denies depression or anxiety. Heart Score: Risk Factors: Risk Factors: DM, Current or recent (<one month) smoker, HTN, HLP, family history of CAD, obesity. Risk Scores: Score 0 - 3: 2.5% MACE over next 6 weeks - Discharge Home Score 4 - 6: 20.3% MACE over next 6 weeks - Admit for Clinical Observation Score 7 - 10: 72.7% MACE over next 6 weeks - Early Invasive Strategies Current Medications: Current Medications Medications (Trade) Dose Ordered Sig/Kt Start Time Stop Time Status Last Admin Dose Admin Acetaminophen/ Hydrocodone Bitart (Lortab 5/325) 2 tab 1X ONCE 02/29/20 12:45 02/29/20 12:54 DC 02/29/20 13:24 2 TAB Allergies: Allergies: Allergies Coded Allergies Type Severity Reaction Last Updated Verified Iodinated Contrast- Oral and IV Dye Allergy Intermediate Hives 09/24/16 Yes shellfish derived Allergy Intermediate Hives 09/24/16 Yes I S O L A T I O N *CONTACT* Allergy Unknown 09/24/16 Yes Physical Exam: PE: Constitutional: Well developed, well nourished, no acute distress, non-toxic appearance. HENT: Normocephalic, atraumatic, bilateral external ears normal, oropharynx moist, no oral exudates, nose normal. Eyes: PERRLA, EOMI, conjunctiva normal, no discharge. Pupils 2 mm. Neck: Normal range of motion, no tenderness, supple, no stridor. Cardiovascular:Heart rate regular rhythm, no murmur heart sounds S1-S2, no added maladies noted per auscultation Lungs & Thorax: Bilateral breath sounds clear to auscultation all lung singh. Abdomen: Bowel sounds normal, soft, no tenderness, no masses, no pulsatile masses. Skin: Warm, dry, no erythema, no rash. Back: Patient denies CVA tenderness. Patient complains of pain at the level of L5/T12 area of the spine without radiation. Extremities: No tenderness, no cyanosis, no clubbing, ROM intact, no edema. Neurologic: Alert and oriented X 3, normal motor function, normal sensory function, no focal deficits noted. Psychologic: Affect normal, judgement normal, mood normal. Current Patient Data: Labs: Laboratory Tests Test 02/29/20 13:20 Urine Collection Type Unknown Urine Color Yellow Urine Clarity Clear Urine pH 6.0 (<5.0-8.0) Urine Specific [place] 1.020 (1.000-1.030) Urine Protein Negative mg/dL (NEG-TRACE) Urine Glucose (UA) Negative mg/dL (NEG) Urine Ketones (Stick) 40 mg/dL (NEG) Urine Blood Negative (NEG) Urine Nitrite Negative (NEG) Urine Bilirubin Negative (NEG) Urine Urobilinogen Dipstick 0.2 mg/dL (0.2 mg/dL) Urine Leukocyte Esterase Negative (NEG) Urine RBC Occ /HPF (0-2) Urine WBC 5-10 /HPF (0-4) Urine Squamous Epithelial Cells Mod /LPF Urine Bacteria Moderate /HPF (0-FEW) Urine Mucus Marked /LPF Vital Signs: Vital Signs Date Time Temp Pulse Resp B/P (MAP) Pulse Ox O2 Delivery O2 Flow Rate FiO2 02/29/20 13:24 18 Room Air EKG: EKG: [] Radiology/Procedures: Radiology/Procedures: CT LUMBAR SPINE WO CONTRAST History:Reason: FALL, PAIN AT SURGERY SITE / Spl. Instructions: / History: Technique: Noncontrast CT was performed of the lumbar spine. Multiplanar reconstructions were performed. Exposure: One or more of the following individualized dose reduction techniques were utilized for this examination: 1. Automated exposure control 2. Adjustment of the mA and/or kV according to patient size 3. Use of iterative reconstruction technique. Comparison: September 24, 2016 Findings: Punctate nonobstructing bilateral renal calculi. No hydronephrosis. Posterior stabilization L4-L5. Grade 1 anterolisthesis L4 on L5, unchanged. Acute T12 superior endplate compression fracture with mild height loss approximately 25 percent. Minimal retropulsion. No significant canal narrowing. No additional fracture. T12-L1: Minimal disc bulge. No canal or neuroforaminal narrowing. L1-L2: Minimal disc bulge. No canal or neuroforaminal narrowing. L2-L3: Small disc bulge. Mild facet arthropathy. No canal narrowing. No neuroforaminal narrowing. L3-L4: Broad-based disc bulge eccentric to the left. Moderate facet arthropathy. Mild left subarticular recess narrowing. No canal narrowing. Minimal left neuroforaminal narrowing. No right neuroforaminal narrowing. L4-L5: Anterolisthesis. Disc uncovering. Disc bulge. Prior right hemilaminectomy. No canal narrowing. No neuroforaminal narrowing. L5-S1: Broad-based disc bulge eccentric to the right. Bilateral subarticular recess narrowing, right greater than left. Abutment of the bilateral descending S1 nerve roots, right greater than left. No canal narrowing. Moderate to advanced facet arthropathy. Mild right neuroforaminal narrowing. No left neuroforaminal narrowing. Impression: 1. Acute T12 mild compression fracture. 2. Grade 1 anterolisthesis L4 on L5 with posterior stabilization. 3. Multilevel lumbar spondylosis most prominent L3-L4 and L5-S1. 4. L5-S1 subarticular recess narrowing with abutment of the descending S1 nerve roots, right greater than left. Correlate for radiculopathy. 5. Nonobstructing bilateral renal calculi. Electronically signed by: Tavon Rocha DO (02/29/2020 1:22 PM) [facility] DICTATED and SIGNED BY: TAVON ROCHA DO DATE: 02/29/20 1322 Course & Med Decision Making: Course & Med Decision Making Pertinent Labs and Imaging studies reviewed. (See chart for details) 44-year-old patient reports slipping and falling onto her low back at approximately 1030 today. Patient states that she had lumbar surgery approximately 3 years ago and fears that she has disrupted the surgical area. Patient's pain was midline spine at the area of L5 T12, there was no bony crepitus, bruising, contusion, or swelling noted at that area. Patient did not lose bowel or bladder, there was no saddle anesthesia, it was not concerning for cauda equina. Patient had no tingling or loss of sensation to her extremities. Patient states the pain is in a single spot in the middle of her low back. Urine was not infected, imaging which showed an acute compression fracture of T12. Discussed findings with patient, recommended she follow-up with the orthopedic surgeon that did her back surgery. Patient states that she has a appointment with him this coming . Patient was given prescription for [place]. Patient gave verbal understanding of discharge home instructions and prescription medication use. Patient had no other further questions or concerns, patient discharged home. Dragon Disclaimer: Lori Disclaimer: This electronic medical record was generated, in whole or in part, using a voice recognition dictation system. Departure Departure Impression: Primary Impression: Compression fracture of T12 vertebra Qualified Codes: S22.080A - Wedge compression fracture of t11-T12 vertebra, initial encounter for closed fracture Referrals: RENALDO LLANES APRN (PCP) Patient Instructions: Back, Compression Fracture Additional Instructions: Follow-up with your orthopedic surgeon this week, return to the emergency department for increased pain or further concerns, follow-up with your doctor soon, take prescribed medications as directed. Scripts Ibuprofen (IBUPROFEN) 600 Mg Tablet 600 MG PO PRN Q6HRS PRN for INFLAMMATION, #20 TAB Prov: JOESPH ZAVALETA APRN 02/29/20 Oxycodone/Apap 5-325 (PERCOCET 5-325 MG TABLET ) 1 Each Tablet 1 TAB PO PRN Q6HRS PRN for PAIN, #14 TAB 0 Refills Prov: JOESPH ZAVALETA APRN 02/29/20 Justicifation of Admission Dx: Justifications for Admission: Justification of Admission Dx: N/A JOESPH ZAVALETA APRN Feb 29, 2020 13:57
[2020-02-29] MEDS ORDERED: fentaNYL PF VIAL 100 MCG/2 ML VIAL IM ONE (14:00)
== END 2020-02-29 14:20 | disposition home or self-care (01) ==
LOC: ER 11:39
DX: S22.080A Wedge compression fracture of T11-T12 vertebra, initial encounter for closed fracture (principal); F32.9 Major depressive disorder, single episode, unspecified; E03.9 Hypothyroidism, unspecified; Z90.710 Acquired absence of both cervix and uterus; Z91.041 Radiographic dye allergy status; Z91.013 Allergy to seafood; W01.0XXA Fall on same level from slipping, tripping and stumbling without subsequent striking against object, initial encounter; Y93.89 Activity, other specified; Y92.89 Other specified places as the place of occurrence of the external cause; Y99.8 Other external cause status
CPT/HCPCS: 72131; 81001; 87086; 96372; 99284; J3010

== ENCOUNTER 2020-12-01 07:12 | Day surgery (SDC) | payer OTHER ==
--- NOTE | 2020-11-30 20:13 | HP ---
ADMIT DATE: 12/01/2020 PREOPERATIVE HISTORY AND PHYSICAL HISTORY OF PRESENT ILLNESS: The patient is a pleasant 45-year-old, who is having difficulty with focal low back pain, which she describes as a cracking, popping and grinding sensation when she twists or turns. She said the problem started in 02/2020 after she had a significant fall, which included a T12 fracture. Her pain, however, is in her lower back on the left, and she rates it 8-9/10. She is taking ibuprofen and Tylenol. She has been limiting her activities. CURRENT MEDICATIONS: Tylenol, ibuprofen, Valium, Macrobid, phentermine. PAST MEDICAL HISTORY: Arthritis, thyroid cancer with radiation, psychiatric care. PAST SURGICAL HISTORY: Hysterectomy, 2012; thyroidectomy 2014; lumbar instrumented fusion, L4-L5, in 09/2016. FAMILY HISTORY: Cancer and hypertension. 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 . Does not smoke. ALLERGIES: SHELLFISH AND IV CONTRAST. PHYSICAL EXAMINATION: GENERAL: Alert, pleasant, no acute distress. HEENT: Normocephalic, atraumatic. SKIN: Warm and dry. Well-healed lumbar incision. MUSCULOSKELETAL: Lumbar paraspinal muscle bulk is normal, restricted range of motion of the lumbar spine, there is a focal tenderness in the lower lumbar spine adjacent to the midline of left. Normal range of motion of the lower extremities bilaterally. EXTREMITIES: No clubbing, cyanosis or edema. NEUROLOGIC: Alert and oriented x3. Strength is 5/5 in the lower extremities, sensory is intact to light touch in the lower extremities bilaterally, reflexes were present and symmetric in the lower extremities, negative straight leg raising, normal gait. IMAGING: I reviewed a CT scan of the lumbar spine in which an excellent fusion appears to have occurred at the site of her previous L4-L5 instrumented fusion. She does have a fractured L5 screw. ASSESSMENT AND PLAN: At this point, I suspect that the fractured screw is what is causing wiggling and allowing her to have pain. My recommendation is that we should remove the hardware. I did discuss this with her including the rationale, technique, risks and expected postoperative course. She would like to go ahead. DARREN DR: Agnes TID: [id number]
[~2020-12-01 07:12] MED LIST changes: +BACITRACIN 50,000 UNIT in IV NORMAL SALINE 1000ML BAG 1,000 ML IRR ONE; +BUPIVACAINE-EPI 0.5%-1:200000 MPF 30 ML VIAL. ONE; +GELATIN SPONGE SIZE 100. ONE; +HYDROmorphone 2 MG/ML VIAL IVP PRN; +IBUP-1007 PO; +IV RINGERS,LACTATED 1000ML 1,000 ML IV SCH; +KETOROLAC 60 MG/2 ML VIAL. ONE; +LEVO150T5 PO; +MORPHINE SULFATE 2 MG/ML VIAL. IVP PRN; +OXYC1TAB15 PO; +PROCHLORPERAZINE 10 MG/2 ML VIAL. IVP PRN; +THROMBIN TOPICAL 20,000 UNIT SPRAY.SYRN KIT TP ONE; +VANCOMYCIN 1GM IVPB FOR OMNI 250 ML IV PRN; +fentaNYL PF VIAL 100 MCG/2 ML VIAL IVP PRN
[2020-12-01] MEDS ORDERED: SCOPOLAMINE 1.5MG PATCH. TD ONE (07:45)
[2020-12-01] MEDS ORDERED: ROCURONIUM 50 MG/5 ML VIAL. ONE (08:20)
[2020-12-01] MEDS ORDERED: PROPOFOL 50 ML IV ONE (08:20)
[2020-12-01] MEDS ORDERED: fentaNYL PF VIAL 100 MCG/2 ML VIAL ONE (08:20)
[2020-12-01] MEDS ORDERED: REMIFENTANIL 2 MG VIAL. IV ONE (08:20)
[2020-12-01] MEDS ORDERED: DESFLURANE > 120 MINUTES IH ONE (09:06)
[2020-12-01] MEDS ORDERED: DEXAMETHASONE SOD PHOS 4 MG/ML VIAL ONE (10:08)
[2020-12-01] MEDS ORDERED: GLYCOPYRROLATE 1 MG/5 ML VIAL. ONE (10:08)
[2020-12-01] MEDS ORDERED: PROPOFOL 10 MG/ML (20ML) VIAL. IV ONE (10:08)
[2020-12-01] MEDS ORDERED: ONDANSETRON PF 4 MG/2 ML VIAL. ONE (10:08)
[2020-12-01] MEDS ORDERED: LIDOCAINE 2% PF 5 ML VIAL. ONE (10:08)
[2020-12-01] MEDS ORDERED: ePHEDrine PF IN SALINE 50 MG/10 ML SYRINGE. IV ONE (10:08)
[2020-12-01] MEDS ORDERED: PHENYLEPHRINE in 0.9% NACL PF 1 MG/10 ML SYRINGE. IV ONE (10:08)
[2020-12-01] MEDS ORDERED: NEOSTIGMINE METHYLSULFATE 5 MG/5 ML SYRINGE. ONE (10:09)
[2020-12-01] MEDS ORDERED: METH-562 PO (11:11)
[2020-12-01] MEDS ORDERED: OXYC-325 PO (11:11)
[2020-12-01] MEDS ORDERED: DOCU-109 PO (11:11)
--- NOTE | 2020-12-01 11:12 | DISCH ---
DISCHARGE INSTRUCTIONS Condition on Discharge Condition on Discharge: Stable Activity After Discharge Activity Instructions for Disc: Activity as tolerated, Avoid exertion Other activity instructions: no driving for a week Bathing Instructions: Shower-keep dressing dry Lifting Instructions after Dis: No heavy lifting, No pulling or pushing, Do not lift >10 pounds Driving Instructions after Dis: No driving for 2 weeks Diet after Discharge Diet after Discharge: Regular Additional Diet Restrictions: resume home diet Diet Texture: Regular Liquid Texture: Thin Liquid Swallowing Supervision: None needed Wound Incision Care Wound/Incision Care: Ice to area for comfort Other wound/incision instructi: may remove dressing in 48 hours if dry then may shower, no soaking Contacting the after DC Call your doctor for: Concerns you may have Follow-Up Follow up with: Dr. Lamb's nurse in 2 weeks [phone] LAYA LAMB MD Dec 01, 2020 11:12
[2020-12-01] MEDS ORDERED: oxyCODONE/APAP 5/325 1 TAB TABLET PO ONE (12:30)
--- NOTE | 2020-12-01 13:13 | OP ---
DATE OF SURGERY: 12/01/2020 PREOPERATIVE DIAGNOSIS: Fractured L5 screw on the left. POSTOPERATIVE DIAGNOSIS: Fractured L5 screw on the left. OPERATION PERFORMED: Removal of left-sided hardware, L4-L5. The operation was done with SSEP monitoring, fluoroscopy. SURGEON: Myles Trammell M.D. RN TRANSPORT: HAL Massey who assisted with the exposure, removal of the hardware and closure. OPERATIVE INDICATIONS: The patient is a pleasant 45-year-old who recently suffered a fall and developed significant left-sided lower back pain. On imaging studies, a fractured screw of L5 was seen and I recommended surgery to remove the hardware. She appeared to have a solid fusion at that level on that side. I discussed with her the surgery and the risks. She understands and she wished to go ahead. DESCRIPTION OF PROCEDURE: Under general endotracheal anesthesia, the patient was positioned prone on the Julián table. Lumbar region was prepped and draped in standard fashion. ARIADNA hose and the impulse boots were applied for DVT prophylaxis. The microscope was draped, fluoroscopy with intraoperative monitoring was established. Ancef 2 grams as well as vancomycin was given preoperatively. Incision was made in the midline directly adjacent to the hardware. I reflected the subcutaneous tissue and made an incision in the fascia directly over the hardware. I used fluoroscopic guidance to guide my approach. I exposed the pedicle screws of L4 and L5 and placed self-retaining retractors. I then removed the caps and the lawson and then removed the L4 screw, closed that with bone wax and then the L5 screw. There was a fractured piece of the screw quite deep within the bone. I used the high speed air drill and exposed the screw, removing the bone, which was held in and I used a cutting bur to incise a groove in the screw, this was done without significant difficulty. That being said, the screw was locked into the bone with such tenacity that I was unable to remove it. Finally with significant force, one of the size of the groove was sheared off and I realized that I would not be able to remove this end of screw, which was densely locked into the bone. I therefore laid Gelfoam over the exposure site as well as bone wax where necessary. I irrigated this copiously. I obtained excellent hemostasis. I closed the wound in layers with absorbable suture. The skin was closed with 4-0 subcuticular stitch and the surgery went very well. HAILEY/DANNA/ISAI DR: Rajeev TID: [id number] MTDDandy
[2020-12-01 13:15] VITALS: BP 110/70
== END 2020-12-01 13:22 | disposition home or self-care (01) ==
LOC: SURG 07:12
PROVIDERS: ATTEND Neurological Surgery
DX: S32.059A Unspecified fracture of fifth lumbar vertebra, initial encounter for closed fracture (principal); T84.296D Other mechanical complication of internal fixation device of vertebrae, subsequent encounter; M54.5 Low back pain; M19.90 Unspecified osteoarthritis, unspecified site; E03.9 Hypothyroidism, unspecified; F32.9 Major depressive disorder, single episode, unspecified; Z90.710 Acquired absence of both cervix and uterus; Z98.890 Other specified postprocedural states; Z85.850 Personal history of malignant neoplasm of thyroid; Z79.899 Other long term (current) drug therapy; Z72.89 Other problems related to lifestyle; Z91.041 Radiographic dye allergy status; Z91.013 Allergy to seafood; Z82.49 Family history of ischemic heart disease and other diseases of the circulatory system; X58.XXXA Exposure to other specified factors, initial encounter; Y93.89 Activity, other specified; Y92.89 Other specified places as the place of occurrence of the external cause; Y99.8 Other external cause status
CPT/HCPCS: 22850; A4314; A4364; A4930; A6254; A6258; J0690; J1100; J1885; J2370; J2405; J2704; J2710; J3010; J3370; J3490; J7030; 76000

== ENCOUNTER → 2021-06-08 | Outpatient (CLI) | payer OTHER ==
[~2021-06-08] MED LIST changes: -BACITRACIN 50,000 UNIT in IV NORMAL SALINE 1000ML BAG 1,000 ML IRR ONE; -BUPIVACAINE-EPI 0.5%-1:200000 MPF 30 ML VIAL. ONE; +DOCU-109 PO; -GELATIN SPONGE SIZE 100. ONE; -HYDROmorphone 2 MG/ML VIAL IVP PRN; -IV RINGERS,LACTATED 1000ML 1,000 ML IV SCH; -KETOROLAC 60 MG/2 ML VIAL. ONE; +METH-562 PO; -MORPHINE SULFATE 2 MG/ML VIAL. IVP PRN; +OXYC-325 PO; -PROCHLORPERAZINE 10 MG/2 ML VIAL. IVP PRN; -THROMBIN TOPICAL 20,000 UNIT SPRAY.SYRN KIT TP ONE; -VANCOMYCIN 1GM IVPB FOR OMNI 250 ML IV PRN; -fentaNYL PF VIAL 100 MCG/2 ML VIAL IVP PRN
--- NOTE | 2021-06-09 09:51 | KCIC ---
EXAMINATION: CT LUMBAR SPINE , 06/08/2021 1:22 PM CLINICAL INDICATION: Pain. Surgery 2017 and then in 2019 after a fall COMPARISON: CT lumbar spine 02/29/2020 TECHNIQUE: Helical CT imaging performed of the lumbar spine without the use of intravenous contrast. Sagittal and coronal reformats were obtained. One or more of the following individualized dose reduction techniques were utilized for this examinat ion: 1. Automated exposure control 2. Adjustment of the mA and/or kV according to patient size 3. Use of iterative reconstruction technique. FINDINGS: There has been interval revision of posterior fusion at L4-L5 with removal of the left L4 p edicle screw and connecting lawson. There is a remaining fractured fragment of the left L5 screw in the pedicle and vertebral body. Right-sided pedicle screws and connecting rods are intact without evidenc e of loosening. There is osseous fusion posterior laterally at L4-L5. There is unchanged 6 mm anterol isthesis of L4 on L5. 1 mm retrolisthesis of L2 on L3. No acute fracture. The T12 vertebral body is i ncompletely visualized but there may be worsened height loss of the known T12 compression fracture on button breaker operator image. T12-L1: No disc bulge or canal or foraminal narrowing. L1-L2: Trace disc bulge. No canal or foraminal narrowing. L2-L3: Trace disc bulge. No canal or foraminal narrowing. L3-L4: Unchanged small broad-based disc bulge asymmetric to the left. No canal or foraminal narrowing . Mild facet arthrosis. L4-L5: Anterolisthesis uncovers a broad-based disc bulge. There is no biliary canal or foraminal narr owing. L5-S1: Unchanged broad-based disc bulge asymmetric to the right resulting in right greater than left lateral recess narrowing and likely mass effect on the traversing right S1 nerve root. This combined with moderate facet arthrosis results in mild bilateral foraminal narrowing. There are surgical changes in the paraspinous soft tissue in the lower lumbar spine There is a 1.1 cm simple cyst in the liver. IMPRESSION: 1. Interval revision of posterior fusion at L4-L5 with removal of the left L4 pedicle screw and conne cting rods. A fractured fragment of the left L5 pedicle screw remains in place. 2. Unchanged mild degenerative disc disease, greatest at L5-S1 where there is a broad-based disc bulg e asymmetric to the right resulting in right greater than left lateral recess narrowing. The disc bul ge abuts the traversing S1 nerve roots, greater on the right where there may be some degree of mass e ffect on the traversing S1 nerve root. 3. The T12 vertebral body is incompletely visualized. There may be worsened height loss of the known T12 vertebral body on button breaker operator image. Electronically signed by: Barbara Suarez MD (06/09/2021 9:49 AM) [id number]
== END ==
LOC: KCIC CT 13:18
PROVIDERS: ATTEND Nurse Practitioner Family
DX: M51.27 Other intervertebral disc displacement, lumbosacral region (principal); M48.07 Spinal stenosis, lumbosacral region; M47.817 Spondylosis without myelopathy or radiculopathy, lumbosacral region; K76.89 Other specified diseases of liver
CPT/HCPCS: 72131